=== PATIENT | female | born 1985 | race Caucasian/White ===

== ENCOUNTER 2017-06-06 20:43 | Emergency (ER) | payer BC ==
[~2017-06-06] VITALS: Ht 152.4 cm; Wt 54.4 kg
[2017-06-06 20:48] VITALS: BP 117/74
[2017-06-06] MEDS ORDERED: ORTHO TRI-CYCL1 EAC1 PO (20:55)
[2017-06-06] MEDS ORDERED: PREDNISONE 20 M20 MG PO (21:19)
[2017-06-06] MEDS ORDERED: ZYRTEC10 M2 PO (21:19)
== END 2017-06-06 21:40 | disposition home or self-care (01) ==
LOC: ER 20:43
DX: L25.9 Unspecified contact dermatitis, unspecified cause (principal)